=== PATIENT | female | born 1955 | race Caucasian/White ===

== ENCOUNTER → 2016-04-28 | Outpatient (CLI) | payer BC | LOC: GMAB 14:20 | PROVIDERS: ATTEND Family Medicine | DX: R00.2 Palpitations (principal) ==

== ENCOUNTER → 2016-06-03 | Outpatient (CLI) | payer BC ==
--- NOTE | 2016-06-03 16:51 | CT ---
EXAM DESCRIPTION: CTA Head CLINICAL HISTORY: 60 years Female, TIA COMPARISON: MRI of the brain dated 07 February 2016 TECHNIQUE: Transaxial images were obtained during rapid ejector demonstration of intravenous contrast media. 3-D MIP reconstruction was performed. This exam was performed using radiation doses that are As Low As Reasonably Achievable (ALARA). FINDINGS: The exam demonstrates normal brain parenchyma. I see no mass or mass effect. No abnormal enhancement is seen. The ventricles and cisternal spaces within range of normal. Portions of paranasal sinuses and orbits imaged are normal. No evidence of a stricture is seen. No evidence of an aneurysm is detected. The anterior communicating artery is patent. Flow is symmetric. IMPRESSION: Normal cerebral CT angiography. Electronically signed by: Javier Duggan MD 06/03/2016 4:48 PM CDT
== END | disposition home or self-care (01) ==
LOC: CT 08:48
PROVIDERS: ATTEND Psychiatry & Neurology Neurology
DX: G45.9 Transient cerebral ischemic attack, unspecified (principal)

== ENCOUNTER → 2017-06-28 | Outpatient (CLI) | payer BC | LOC: GMAB 11:14 | PROVIDERS: ATTEND Family Medicine | DX: Z00.01 Encounter for general adult medical examination with abnormal findings (principal); G44.221 Chronic tension-type headache, intractable; H53.10 Unspecified subjective visual disturbances ==

== ENCOUNTER → 2019-02-06 | Outpatient (CLI) | payer BC ==
--- NOTE | 2019-02-06 11:26 | US ---
EXAM DESCRIPTION: Soft Tissue,Head/Neck CLINICAL HISTORY: 63 years Female, ENLARGED LYMPH NODES COMPARISON: MRI cervical spine 12/13/2013 TECHNIQUE: Targeted sonographic images of the left neck with grayscale and color flow Doppler images obtained by the technologist. IMPRESSION: Normal-appearing lymph nodes measuring no greater than 5 mm short axis in the left neck. No suspicious mass or fluid collection. Electronically signed by: Abel Lopez MD 02/06/2019 11:25 AM [employer]
== END ==
LOC: US 10:29
PROVIDERS: ATTEND Nurse Practitioner Acute Care
DX: R59.9 Enlarged lymph nodes, unspecified (principal)

== ENCOUNTER → 2020-01-18 | Outpatient (CLI) | payer OTHER | LOC: GMAE 11:54 | PROVIDERS: ATTEND Family Medicine | DX: B34.2 Coronavirus infection, unspecified (principal) ==